=== PATIENT | male | born 1980 | race Caucasian/White ===

== ENCOUNTER 2016-10-01 20:19 | Emergency (ER) | payer BC, OTHER ==
--- NOTE | 2016-10-01 21:09 | ED Physician Documentation ---
General Adult - HISTORIAN Historian: patient - HPI Stated Complaint: Fever for 9 days/non-productive cough Chief Complaint: General Adult Onset: days ago (9) Timing: worse Further Comments: yes (36 year old male patient presents with complaint of fever for the past 9 days, states he used ibuprofen at 2000 tonight. Patient reports using tylenol and ibuprofen for his fevers over the past 9 days. States he was seen in the ER at [facility] on Wednesday, unsure of diagnosis, was not discharged with any medications. C/O productive cough and chest discomfort with deep breath. Works for [email or web address]. Denies recent tick bite.) - ROS CONST: fever, sweating, recent illness, weakness ("tired"), chills, other (poor appetite) EYES/ENT: none CVS/RESP: none GI/: none MS/SKIN/LYMPH: none NEURO/PSYCH: headache. denies: dizziness, tingling, numbness, difficulty walking, difficulty with speech - PAST HX Past History: none Allergies/Adverse Reactions: Allergies Allergy/AdvReac Type Severity Reaction Status Date / Time No Known Allergies Allergy Verified 10/01/16 20:37 Home Medications: Ambulatory Orders Medication Instructions Recorded NK [NK] 04/25/14 - SOCIAL HX Smoking History: non-smoker - FAMILY HX Family History: No - VITAL SIGNS Vital Signs: Vital Signs Temp Pulse Resp BP Pulse Ox 98.9 F 74 16 124/78 98 10/01/16 20:19 10/01/16 20:19 10/01/16 20:19 10/01/16 20:19 10/01/16 20:19 - REVIEWED ASSESSMENTS Nursing Assessment Reviewed: Yes Vitals Reviewed: Yes Progress - Progress Progress: Reviewed lab results with patient, requested antibiotic - explained he did not need antibiotic, risk of over prescribing antibiotics reviewed. Tick panel and respiratory viral panel pending. ED Results Lab/Radiology - Orders Orders: ED Orders Category Date Time Status Place IV Lock 1T Care 10/01/16 20:37 Active CBC/PLATELET/DIFF Stat Lab 10/01/16 20:37 Ordered CMP Stat Lab 10/01/16 20:37 Ordered INFLUENZA A&B Stat Lab 10/01/16 Uncollected MONOTEST Stat Lab 10/01/16 Ordered UA W/MICRO IF INDICATED Stat Lab 10/01/16 20:37 Ordered General Adult Physical Exam - PHYSICAL EXAM GENERAL APPEARANCE: [id number] N EENT: eye inspection normal, ENT inspection normal, pharynx normal, no signs of dehydration, CLAIRE, no nystagmus, TM's nml NECK: normal inspection, thyroid normal RESPIRATORY: no resp distress, chest non-tender, breath sounds normal CVS: reg rate & rhythm, heart sounds normal, equal pulses, no murmur, no gallop , PMI nml, no JVD, no friction rub, 24 ABDOMEN: soft, no organomegaly, normal bowel sounds, no abdominal bruit, no distension BACK: normal inspection, no CVA tenderness SKIN: normal color, warm/dry, NR, INT, PAL, DR EXTREMITIES: non-tender, normal range of motion, no evidence of injury, no edema , J, DATA ENTRY PROCESSOR NEURO: oriented X3, CN's nml as tested, motor nml, sensation nml, mood/affect nml Discharge Clincal Impression: Cough, fever reported, Viral syndrome Referrals: Primary Doctor,No [Primary Care Provider] - 2 Days Additional Instructions: Treat your symptoms with over the counter medication. 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 You may want to try Vicks rub on your chest and/or feet. ( Caution: Dayquil and Nyquil contain 325mg of tyelnol/acetaminophen per tablespoon) Cough drops as needed for cough and sore throat. Increase your fluid intake juices, hot tea, non-caffeinated beverages Vitamin C may be helpful in decreasing the length of your cold. Use a humidifier in the room where you sleep. You can also sit in a steam filled bathroom 1-2 times a day. Tylenol every 4 hours 650mg -1000mg (do not exceed 4000mg in 24 hours) as needed for fever, pain and body aches. Alternate with Ibuprofen Ibuprofen 600-800mg every 6 hours as needed for fever, pain and body aches. See your primary care doctor if your symptoms become worse or do not improve in the next 2-3 days. A tick borne illness panel and respiratory viral panel are pending. You may call on Wednesday for results Home Medications: Ambulatory Orders NK [NK] 04/25/14 Condition: Stable Disposition: 01 HOME, SELF-CARE Decision to Admit: NO Decision Time: 21:58
[2016-10-01 21:22] LABS: BASOPHILS % 1.1 (0.0-1.5); EOSINOPHILS % 3.1 % (0.0-6.8); MEAN CORPUSCULAR HEMOGLOBIN 32.2 pg (28.0-34.0); MEAN CORPUSCULAR VOLUME 90.2 fl (80.0-100.0); MONOCYTES % 7.5 % (0.0-11.0); NEUTROPHILS # 5.3 # k/uL (1.4-7.7)
[2016-10-01 21:33] LABS: eGFR (African) > 60; eGFR (Non-African) > 60
[2016-10-01 22:19] VITALS: BP 126/72
[2016-10-02 05:58] LABS: APPEARANCE,URINE CLEAR (CLEAR); COLOR,URINE YELLOW (YELLOW)
[2016-10-02 05:59] LABS: OCCULT BLOOD,URINE NEGATIVE (NEGATIVE); UROBILINOGEN URINE 0.2 Eu (0.2-1.0)
[2016-10-02 15:51] LABS: ADENOVIRUS DNA NEGATIVE (NEGATIVE); BORDETELLA PERTUSSIS DNA NEGATIVE (NEGATIVE); SOURCE: NASOPHARYNGEAL SWAB
== END 2016-10-01 22:05 | disposition home or self-care (01) ==
LOC: ED 20:19
DX: J06.9 Acute upper respiratory infection, unspecified (principal); R50.9 Fever, unspecified; R05 Cough
CPT/HCPCS: 80053; 81002; 85025; 86308; 86618; 86666; 86757; 87400; 87486; 87581; 87633; 87798; 99283; S1016